=== PATIENT | female | born 1975 | race Caucasian/White ===

== ENCOUNTER 2017-11-05 07:29 | Emergency (ER) | payer BC, OTHER ==
[~2017-11-05] VITALS: Ht 157.5 cm; Wt 52.9 kg
[~2017-11-05 07:29] MED LIST: ALPR1TAB2 PO; CITA20TA9 PO; DOXY100C2 PO; LAMO100T63 PO; METR250T PO; ONDA4TAB10 PO; QUET400T4 PO; ZOLP10TA PO
[2017-11-05] MEDS ORDERED: ONDANSETRON 2MG/ML, 2ML ONE ×4 (08:19→11:33)
[2017-11-05] MEDS ORDERED: MORPHINE SULFATE 4 MG/ML, 1ML ONE ×2 (08:19→10:52)
[2017-11-05 08:28] LABS: MICROSCOPIC NOT IND
[2017-11-05 08:28] LABS: BASOPHILS # (AUTO) 0.05 x10^3/uL (0-0.1); BASOPHILS % (AUTO) 0 % (0-1); EOSINOPHILS % (AUTO) 1 % (1-7); LYMPHOCYTES % (AUTO) 16 % (22-44); MD NO; MEAN CORPUSCULAR HEMOGLOBIN 31.8 pg (27.0-34.8); MEAN CORPUSCULAR HGB CONC 34.2 g/dL (32.4-35.8); MEAN CORPUSCULAR VOLUME 92.8 fL (80-100); MEAN PLATELET VOLUME 7.3 fL (7.4-10.4); MONOCYTES # (AUTO) 0.93 x10^3/uL (0.2-0.8); MONOCYTES % (AUTO) 6 % (2-9); NEUTROPHILS # (AUTO) 12.43 x10^3/uL (1.8-6.8); NEUTROPHILS % (AUTO) 78 % (42-75); PLATELET COUNT 334 x10^3/uL (130-400); RED BLOOD COUNT 4.97 x10^6/uL (3.82-5.3); RED CELL DISTRIBUTION WIDTH 12.2 % (9.6-15.2)
[2017-11-05] MEDS ORDERED: ONDANSETRON 2MG/ML, 2ML IVPush ONE (08:30)
[2017-11-05] MEDS ORDERED: SODIUM CHLORIDE 0.9% 1,000ML IVBOLUS ONE ×2 (08:30)
[2017-11-05 08:34] LABS: CULTURE INDICATED? NO
[2017-11-05 08:39] LABS: ALANINE AMINOTRANSFERASE 17 U/L (12-78); ALBUMIN 3.8 g/dL (3.4-5.0); ANION GAP 10 mmol/L (5-15); CHLORIDE 112 mmol/L (98-107); CREATININE 0.88 mg/dL (0.55-1.02)
[2017-11-05] MEDS: MORPHINE SULFATE 4 MG/ML, 1ML IVPush PRN ×2 (08:40→10:56)
[2017-11-05 08:41] LABS: ALKALINE PHOSPHATASE 89 U/L (45-117); BILIRUBIN,TOTAL 0.5 mg/dL (0.2-1.0); TOTAL PROTEIN 7.7 g/dL (6.4-8.2)
[2017-11-05] MEDS ORDERED: OMNIPAQUE 350 MG/ML, 100ML BOTTLE ONE (09:30)
[2017-11-05] MEDS ORDERED: CEFOTETAN PMX 2GM/50ML 50 ML IV ONE (10:00)
[2017-11-05] MEDS ORDERED: BUPIVACAINE/PF-EPI 0.5% 1:200K ONE (10:44)
[2017-11-05] MEDS ORDERED: MIDAZOLAM 1 MG/ML, 2ML ONE ×2 (10:46→11:09)
[2017-11-05] MEDS ORDERED: FENTANYL PF 100 MCG/2ML ONE ×3 (10:46→12:16)
[2017-11-05] MEDS ORDERED: LIDOCAINE-MPF 2% ,5ML ONE ×2 (10:48→11:09)
[2017-11-05] MEDS ORDERED: LIDOCAINE JELLY 2%, 30GM ONE (10:51)
[2017-11-05] MEDS ORDERED: ONDANSETRON ODT 8 MG PO PRN (11:00)
[2017-11-05] MEDS ORDERED: MIDAZOLAM 1 MG/ML, 2ML IV PRN (11:00)
[2017-11-05] MEDS ORDERED: SCOPOLAMINE PATCH, 1.5MG PATCH.TD72 TD PRN (11:00)
[2017-11-05] MEDS ORDERED: PROMETHAZINE 25 MG SUPP PR PRN (11:00)
[2017-11-05] MEDS ORDERED: ALBUTEROL/IPRATROPIUM 2.5MG/0.5MG, 3 ML NPPB PRN (11:00)
[2017-11-05] MEDS ORDERED: LABETALOL 5MG/ML, 20ML IV PRN (11:00)
[2017-11-05] MEDS ORDERED: OXYcodone 5 MG/5 ML ORAL.SOL UDC PO PRN (11:00)
[2017-11-05] MEDS ORDERED: HYDROmorphone 1 MG/ML, 1ML IV PRN (11:00)
[2017-11-05] MEDS ORDERED: ACETAMINOPHEN 325 MG TABLET PO PRN (11:00)
[2017-11-05] MEDS ORDERED: MEPERIDINE/PF 25MG/0.5ML IVPush PRN (11:00)
[2017-11-05] MEDS ORDERED: hydrALAzine 20 MG/ML, 1ML IV PRN (11:00)
[2017-11-05] MEDS ORDERED: ROCURONIUM 10 MG/ML,10ML ONE (11:09)
[2017-11-05] MEDS ORDERED: DEXAMETHASONE 4 MG/ML, 1ML ONE ×3 (11:09→11:33)
[2017-11-05] MEDS ORDERED: PROPOFOL 10 MG/ML, 20ML ONE ×2 (11:09→11:33)
[2017-11-05] MEDS ORDERED: CEFAZOLIN 1,000 MG ONE ×2 (11:09→11:33)
[2017-11-05] MEDS ORDERED: NEOSTIGMINE 1 MG/ML, 10ML ONE ×2 (11:09→11:33)
[2017-11-05] MEDS ORDERED: GLYCOPYRROLATE 0.2MG/1ML, 5ML ONE ×2 (11:09→11:33)
[2017-11-05] MEDS ORDERED: KETOROLAC 30 MG/1 ML ONE ×2 (11:09→11:30)
[2017-11-05] MEDS ORDERED: ROCURONIUM 10MG/ML,5ML ONE (11:33)
[2017-11-05] MEDS ORDERED: OXYcodone 5 MG/5 ML ORAL.SOL UDC ONE (11:51)
[2017-11-05] MEDS: FENTANYL PF 100 MCG/2ML IV PRN ×2 (12:17→12:22)
[2017-11-05] MEDS ORDERED: LACTATED RINGERS 1,000 ML IV SCH (14:30)
[2017-11-05] MEDS ORDERED: MORPHINE SULFATE 4 MG/ML, 1ML IVPush PRN (14:30)
[2017-11-05] MEDS ORDERED: ONDANSETRON 2MG/ML, 2ML IVPush PRN (14:30)
[2017-11-05] MEDS ORDERED: HYDROmorphone 2 MG/ML, 1ML IV PRN (14:30)
[2017-11-05] MEDS ORDERED: OXYcodone/APAP 5/325MG TABLET PO PRN (14:30)
[2017-11-05] MEDS ORDERED: HYDROcodone/APAP 5/325 TABLET PO PRN (14:30)
[2017-11-05] MEDS ORDERED: HYDR-3240 PO (14:36)
[2017-11-05] MEDS ORDERED: CEPH-367 PO (14:39)
[2017-11-05 15:04] VITALS: BP 93/67
== END 2017-11-05 15:15 | disposition home or self-care (01) ==
LOC: ED 10:11 → 4NOR 12:44 → ED 15:15
DX: K35.80 Unspecified acute appendicitis (principal)
CPT/HCPCS: 36415; 44970; 74177; 80053; 81003; 83690; 85025; 88304; 96361; 96374; 96375; 96376; 99285; J0690; J1100; J1885; J2250; J2405; J2704; J2710; J3010; J3490; J7030; Q9967; S0074; G0378

== ENCOUNTER 2018-03-14 08:24 | Emergency (ER) | payer BC ==
[~2018-03-14] VITALS: Ht 157.5 cm; Wt 56.0 kg
[~2018-03-14 08:24] MED LIST changes: +CEPH-367 PO; +HYDR-3240 PO
[2018-03-14] MEDS ORDERED: ONDANSETRON 2MG/ML, 2ML ONE (08:56)
[2018-03-14] MEDS ORDERED: MORPHINE SULFATE 4 MG/ML, 1ML ONE (08:56)
[2018-03-14] MEDS ORDERED: ONDANSETRON 2MG/ML, 2ML IVPush ONE (09:00)
[2018-03-14] MEDS ORDERED: MORPHINE SULFATE 4 MG/ML, 1ML IVPush PRN (09:00)
[2018-03-14] MEDS ORDERED: SODIUM CHLORIDE FLUSH 10ML SYR IVF ONE (09:00)
[2018-03-14 09:25] LABS: MICROSCOPIC NOT IND
[2018-03-14 09:26] LABS: BASOPHILS # (AUTO) 0.04 x10^3/uL (0-0.1); BASOPHILS % (AUTO) 0 % (0-1); EOSINOPHILS # (AUTO) 0.26 x10^3/uL (0-0.4); EOSINOPHILS % (AUTO) 3 % (1-7); LYMPHOCYTES # (AUTO) 3.07 x10^3/uL (1-3.4); LYMPHOCYTES % (AUTO) 36 % (22-44); MD NO; MEAN CORPUSCULAR HEMOGLOBIN 31.3 pg (27.0-34.8); MEAN CORPUSCULAR HGB CONC 33.7 g/dL (32.4-35.8); MEAN CORPUSCULAR VOLUME 92.7 fL (80-100); MEAN PLATELET VOLUME 7.1 fL (7.4-10.4); MONOCYTES # (AUTO) 0.76 x10^3/uL (0.2-0.8); MONOCYTES % (AUTO) 9 % (2-9); NEUTROPHILS # (AUTO) 4.53 x10^3/uL (1.8-6.8); NEUTROPHILS % (AUTO) 52 % (42-75); PLATELET COUNT 318 x10^3/uL (130-400); RED BLOOD COUNT 5.35 x10^6/uL (3.82-5.3); RED CELL DISTRIBUTION WIDTH 12.5 % (9.6-15.2)
[2018-03-14 09:26] LABS: CULTURE INDICATED? NO
[2018-03-14 09:37] LABS: ALANINE AMINOTRANSFERASE 15 U/L (12-78); ALBUMIN 3.9 g/dL (3.4-5.0); ANION GAP 8 mmol/L (5-15); CALCIUM 9.1 mg/dL (8.5-10.1); CHLORIDE 116 mmol/L (98-107); CREATININE 0.96 mg/dL (0.55-1.02)
[2018-03-14 09:39] LABS: ALKALINE PHOSPHATASE 85 U/L (45-117); BILIRUBIN,TOTAL 0.4 mg/dL (0.2-1.0); TOTAL PROTEIN 7.8 g/dL (6.4-8.2)
--- NOTE | 2018-03-14 10:11 | NUR ---
PT MEDICATED PER ORDER. PT NOW IN BED WATCHING TV. PT STATES PAIN IS NOW AT 3/10 AND MANAGEABLE.
[2018-03-14 10:38] VITALS: BP 113/82
--- NOTE | 2018-03-14 10:39 | NUR ---
PT TO US NOW
== END 2018-03-14 12:05 | disposition home or self-care (01) ==
LOC: ED 08:54
DX: N83.01 Follicular cyst of right ovary (principal); Z90.710 Acquired absence of both cervix and uterus
CPT/HCPCS: 36415; 74176; 76830; 80053; 81003; 83690; 85025; 96374; 96375; 99284; J2405

== ENCOUNTER 2019-08-31 10:42 | Emergency (ER) | payer BC ==
[~2019-08-31] VITALS: Ht 165.1 cm; Wt 63.0 kg
--- NOTE | 2019-08-31 11:05 | NUR ---
PT AMBULATED TO THE BR W/ A STEADY GAIT.
[2019-08-31 11:27] LABS: MICROSCOPIC INDICATED
[2019-08-31] MEDS ORDERED: CEFDINIR 300 MG CAPSULE PO ONE (11:30)
[2019-08-31] MEDS ORDERED: CEFDINIR 300 MG CAPSULE ONE (12:03)
[2019-08-31] MEDS ORDERED: KETOROLAC 30 MG/1 ML IM ONE (12:30)
[2019-08-31] MEDS ORDERED: ONDANSETRON ODT 4 MG PO ONE (12:30)
--- NOTE | 2019-08-31 12:33 | NUR ---
PT TO CT.
[2019-08-31] MEDS ORDERED: ONDANSETRON ODT 4 MG ONE (12:43)
[2019-08-31] MEDS ORDERED: KETOROLAC 30 MG/1 ML ONE (12:44)
--- NOTE | 2019-08-31 12:51 | NUR ---
PT MEDICATED PER EMAR. PT RESTING ON GURNY W/ CALL LIGHT IN REACH, VSS, NADN. ALL TESTS RESULTED, PT IS UP FOR RECHECK AT THIS TIME.
--- NOTE | 2019-08-31 13:04 | NUR ---
Recieved report from CARLEEN Hardy. All questions answered. Assuming care of pt at this time.
--- NOTE | 2019-08-31 13:14 | NUR ---
Patient given discharge instructions and they have confirmed that they understand the instructions. Patient ambulatory with steady gait. Pt left with d/c paperwork, Rx, and all personal belongings. NADN. No needs expressed.
[2019-08-31 13:15] VITALS: BP 99/66
== END 2019-08-31 13:19 | disposition home or self-care (01) ==
LOC: ED 11:29
DX: N30.00 Acute cystitis without hematuria (principal); R11.0 Nausea
CPT/HCPCS: 74176; 81001; 87077; 87086; 96372; 99284; J1885; Q0162; 87186